=== PATIENT | male | born 1990 | race American Indian/Alaskan Native ===

== ENCOUNTER 2023-10-17 16:23 | Emergency (ER) | payer SELFPAY ==
[2023-10-17 16:26] VITALS: BP 133/85; PULSE 73; RESP 18; TEMP 36.4; O2SAT 99; BMI 26.6
[2023-10-17 16:37] VITALS: BP 157/108; PULSE 70; O2SAT 96
--- NOTE | 2023-10-17 16:37 | ED_ITS ---
HPI - Headache General: Chief Complaint: Headache Stated Complaint: headache Time Seen by Provider: 10/17/23 16:31 History of Present Illness: 33-year-old man who presents to the [facility] room with a severe headache. He says he had an episode a couple of days ago that lasted a few hours. Pain is in the back of his head. He has photophobia. He has some nausea. They have noted that his blood pressure has been elevated when he has the headache. Headache started again today and has not gone away. No altered mental status. No focal motor deficits. No chest pain. He had some nausea but no vomiting. No abdominal pain. He has a history of having headaches occasionally. He says he also had a bad head injury in the past. Review of Systems Narrative: Constitutional symptoms: Negative except as documented in HPI. Skin symptoms: Negative except as documented in HPI. Eye symptoms: Negative except as documented in HPI. ENMT symptoms: Negative except as documented in HPI. Respiratory symptoms: Negative except as documented in HPI. Cardiovascular symptoms: Negative except as documented in HPI. Gastrointestinal symptoms: Negative except as documented in HPI. Genitourinary symptoms: Negative except as documented in HPI. Musculoskeletal symptoms: Negative except as documented in HPI. Neurologic symptoms: Negative except as documented in HPI. Psychiatric symptoms: Negative except as documented in HPI. Endocrine symptoms: Negative except as documented in HPI. Physical Exam Narrative: EXAM NARRATIVE: General: Alert, no acute distress. Skin: warm and dry Head: Normocephalic Neck: Trachea midline Eye: Extraocular movements are intact. Ears, nose, mouth and throat: Oral mucosa moist Respiratory: Respirations are non-labored Musculoskeletal: Normal ROM Neurological: Alert and oriented to person, place, time, and situation, No focal neurological deficit observed. Psychiatric: Cooperative, appropriate mood & affect. Course Vital Signs: Vital signs: Vital Signs Temperature 97.6 F 10/17/23 16:26 Pulse Rate 70 10/17/23 16:37 Respiratory Rate 18 10/17/23 16:26 Blood Pressure 157/108 10/17/23 16:37 Pulse Oximetry 96 10/17/23 16:37 Oxygen Delivery Me thod Room Air 10/17/23 16:37 MDM - Headache Medical Decision Making Medical decision making: Differential diagnosis for this patient presenting with severe headache including but not limited to and based on the above HPI, review of systems and physical exam: Intracranial hemorrhage, stroke, migraine, cluster headache, infections such as influenza, covid Orders placed to evaluate differential diagnosis based on the above differential, HPI and physical exam Patient has no flu or COVID symptoms so I am not swabbing him. CT of the head ordered secondary to complaint being worst headache of his life. And his history of head injury. CT head: No acute intracranial process. no intracranial hemorrhage, no evidence of infarct. no evidence of acute fracture.This was reviewed and interpreted by myself the ER physician. Reexamination: patient with no neuro sx. no ams. Lab Data I reviewed the patient's lab results. Radiology Impressions Head CT 10/17/23 16:37 IMPRESSION: No acute intracranial abnormality. If symptoms persist, consider further evaluation with MRI. All radiology interpretation(s) finalized by discharge Other Data Assessment and plan: - Discharged home - Discussed plan with patient. Answered any questions. - Evaluation and treatment of this problem were appropriate in the emergency setting. Discharge Plan Discharge Patient Disposition: Home Clinical Impression: Headache Condition: Stable Discharge Orders: Discharge ED (Routine); Ordered 10/17/23 Ordered By: Karishma Mendoza Discharge Diet: Usual diet Discharge Activity: Resume usual activity Patient Instructions: Opioid Safety, Pain Management Coding Level of Care Code ED [employer] for Susie Chakraborty
--- NOTE | 2023-10-17 16:37 | CTR_ITS ---
PROCEDURE INFORMATION: Exam: CT Head Without Contrast Exam date and time: 10/17/2023 5:13 PM Age: 33 years old Clinical indication: Pain; Headache; Additional info: Worst headache of life, posterior TECHNIQUE: Imaging protocol: Computed tomography of the head without contrast. Radiation optimization: All CT scans at this facility use at least one of these dose optimization techniques: automated exposure control; mA and/or kV adjustment per patient size (includes targeted exams where dose is matched to clinical indication); or iterative reconstruction. COMPARISON: No relevant prior studies available. RADIATION DOSE METRICS: Total DLP (mGy-cm): 1079.48 FINDINGS: Brain: No acute intracranial hemorrhage. No confluent lobar infarct. No mass effect. Cerebral ventricles: The ventricles and sulci are normal in size and shape for the patient's stated age. Paranasal sinuses: Visualized sinuses are unremarkable. No fluid levels. Mastoid air cells: Visualized mastoid air cells are well aerated. Bones/joints: Unremarkable. No acute fracture. Soft tissues: Visualized soft tissues are unremarkable. CT/CT head wo con* [id number] IMPRESSION: No acute intracranial abnormality. If symptoms persist, consider further evaluation with MRI.
== END 2023-10-17 18:02 | disposition home or self-care (01) ==
PROVIDERS: Emergency Provider Emergency Medicine
DX: R51.9 Headache, unspecified (principal)
CPT/HCPCS: 70450; 99284